=== PATIENT | female | born 1990 | race Caucasian/White ===

== ENCOUNTER 2023-05-23 18:35 | Emergency (ER) | payer SELFPAY ==
[2023-05-23 18:41] VITALS: BP 136/92; PULSE 103; RESP 16; TEMP 36.6; O2SAT 97; BMI 43.9
--- NOTE | 2023-05-23 19:18 | CTR_ITS ---
PROCEDURE INFORMATION: Exam: CT Head Without Contrast Exam date and time: 05/23/2023 7:47 PM Age: 32 years old Clinical indication: Pain; Headache; Additional info: CASSIDY TECHNIQUE: Imaging protocol: Computed tomography of the head without contrast. Radiation optimization: All CT scans at this facility use at least one of these dose optimization techniques: automated exposure control; mA and/or kV adjustment per patient size (includes targeted exams where dose is matched to clinical indication); or iterative reconstruction. REPORTING DATA: Count of CT and Cardiac NM exams in prior 12 months: This patient has received 0 known CTs and 0 known cardiac nuclear medicine studies in the 12 months prior to the current study. COMPARISON: No relevant prior studies available. RADIATION DOSE METRICS: Total DLP (mGy-cm): 1123.79 FINDINGS: Brain: Normal. No hemorrhage. Unremarkable white matter. No mass effect. Cerebral ventricles: No ventriculomegaly. Paranasal sinuses: Visualized sinuses are unremarkable. No fluid levels. Mastoid air cells: Visualized mastoid air cells are well aerated. Bones/joints: Unremarkable. No acute fracture. Soft tissues: Unremarkable. CT/CT head wo con* [id number] IMPRESSION: No acute intracranial abnormality.
--- NOTE | 2023-05-23 19:20 | ED_ITS ---
HPI - Headache General: Chief Complaint: Headache Stated Complaint: Left head pain, confusion Time Seen by Provider: 05/23/23 18:50 Source: patient Mode of arrival: ambulatory Limitations: no limitations History of Present Illness: 32-year-old female who states she had a headache since Saturday states it began gradually and is worsened on the left side states that she had a seizure she believes earlier she does have a history of seizures and not taking meds. Headaches currently an 8 out of 10 states she is felt confused at times. Denies any fevers or neck pain. Associated symptoms: Deny chest pain, fever(s), nausea, rash or vomiting Review of Systems Const: Denies: fever(s) or chills Eyes: Denies: blurry vision or eye discomfort ENMT: Denies: throat pain or dental pain Card: Denies: chest pain Resp: Denies: dyspnea GI: Denies: abdominal pain, nausea, vomiting or diarrhea Musc: Denies: neck pain or back pain Skin/Breast: Denies: rash Neuro: Reports: headache(s) Physical Exam Const: COMMON NORMALS: no acute distress, patient oriented x3 and healthy appearing HENMT: COMMON NORMALS: normocephalic and atraumatic HEAD & SCALP: normocephalic and atraumatic Eye: COMMON NORMALS: Equal, round and reactive pupils present and EOMs intact bilaterally PUPIL: Yes Equal, round and reactive pupils present Neck/C-Spine: COMMON NORMALS: full ROM and supple Chest: COMMONS NORMALS: normal inspection of the chest and normal palpation of entire chest wall Resp: COMMON NORMALS: normal respiratory effort, No retractions, No use of accessory muscles and clear to auscultation bilaterally AUSCULTATION: clear to auscultation bilaterally Cardio: COMMON NORMALS: regular rate, regular rhythm and No murmurs present (Cardio) RATE: regular rate RHYTHM: regular rhythm GI: INSPECTION: Yes normal to inspection Extremity: COMMON NORMALS: normal to inspection and full ROM Neuro: COMMON NORMALS: patient oriented x3, moves all extremities and no focal motor deficits CRANIAL NERVES: Yes CN normal except as noted SPEECH: speech normal MOTOR EXAM: 5/5 motor strength present throughout Psych: COMMON NORMALS: mental status grossly normal, Normal thought process present and cooperative THOUGHT PROCESS: Normal thought process present Skin: COMMON NORMALS: no rashes or lesions noted and no wounds GENERAL SKIN EXAM: no rashes or lesions noted Course Vital Signs: Vital signs: Vital Signs Temperature 97.9 F 05/23/23 18:41 Pulse Rate 80 05/23/23 20:02 Respiratory Rate 16 05/23/23 18:41 Blood Pressure 127/87 05/23/23 20:02 Pulse Oximetry 95 05/23/23 20:02 Oxygen Delivery Me thod Room Air 05/23/23 20:02 MDM - Headache Medical Decision Making Patient presents here with a headache is either tension or migraine headache her headaches completely resolved here after Reglan head CT is normal she has no signs of meningitis or subarachnoid hemorrhage she is stable for discharge she is to follow-up with PCP and return if worsening. Medical Records I reviewed the patient's medical records. Lab Data I reviewed the patient's lab results. 05/23/23 18:36 05/23/23 18:[address] 05/23/23 19:18 IMPRESSION: No acute intracranial abnormality. Laboratory Results WBC 10.7 10^3/uL (4.0-10.0) H 05/23/23 18:36 RBC 4.56 10^6/uL (4.1-5.3) 05/23/23 18:36 Hgb 13.6 g/dL (11.5-15.3) 05/23/23 18:36 Hct 40.4 % (37.0-47.0) 05/23/23 18:36 MCV 88.6 fl (81-99) 05/23/23 18:36 MCH 29.8 pg (28.0-34.0) 05/23/23 18:36 MCHC 33.7 g/dL (30.0-36.0) 05/23/23 18:36 RDW 13.1 % (12.1-15.1) 05/23/23 18:36 Plt Count 272 10^3/cmm (130-400) 05/23/23 18:36 MPV 10.4 fL (7.4-10.4) 05/23/23 18:36 Neut % (Auto) 62.1 % 05/23/23 18:36 Lymph % (Auto) 28.0 % 05/23/23 18:36 [place] % (Auto) 8.0 % 05/23/23 18:36 Eos % (Auto) 1.1 % 05/23/23 18:36 Baso % (Auto) 0.4 % 05/23/23 18:36 Neut # (Auto) 6.65 10^3/uL (1.8-7.7) 05/23/23 18:36 Lymph # (Auto) 3.0 10^3/uL (0.8-4.8) 05/23/23 18:36 [place] # (Auto) 0.9 10^3/uL (0.2-0.9) 05/23/23 18:36 Eos # (Auto) 0.1 10^3/uL (0.0-0.8) 05/23/23 18:36 Baso # (Auto) 0.0 10^3/uL (0.0-0.1) 05/23/23 18:36 Nucleated RBC % (auto) 0 % 05/23/23 18:36 Nucleated RBCs # 0.0 /100WBC 05/23/23 18:36 Sodium 137 mmol/L (136-145) 05/23/23 18:36 Potassium 4.2 mmol/L (3.5-5.1) 05/23/23 18:36 Chloride 102 mmol/L (98-107) 05/23/23 18:36 Carbon Dioxide 23 mmol/L (22-29) 05/23/23 18:36 Anion Gap 16.2 (5-19) 05/23/23 18:36 BUN 14 mg/dL (6-20) 05/23/23 18:36 Creatinine 0.8 mg/dL (0.5-0.9) 05/23/23 18:36 GFR Calculation 82.6 mL/min (90-130) L 05/23/23 18:36 Glucose 86 mg/dL (65-115) 05/23/23 18:36 Calculated Osmolality 284 mOsm/kg (285-295) L 05/23/23 18:36 Calcium 9.1 mg/dL (8.5-10.5) 05/23/23 18:36 Total Bilirubin 0.3 mg/dL (0.15-1.2) 05/23/23 18:36 AST 23 U/L (0-32) 05/23/23 18:36 ALT 24 U/L (0-33) 05/23/23 18:36 Alkaline Phosphatase 79 U/L (35-105) 05/23/23 18:36 Total Protein 6.8 g/dL (6.6-8.7) 05/23/23 18:36 Albumin 4.0 g/dL (3.5-5.2) 05/23/23 18:36 Globulin 2.8 g/dL (1.3-4.6) 05/23/23 18:36 HCG, Qual Negative (Negative) 05/23/23 18:46 Discharge Plan Discharge Patient Disposition: Home Clinical Impression: Headache Condition: Stable Discharge Orders: Discharge ED (Routine); Ordered 05/23/23 Ordered By: Shonda Thompson Discharge Diet: Advance as tolerated Discharge Activity: Resume usual activity Patient Instructions: General Headache (ED) Coding Level of Care Code ED Senior Executive Compensation Analyst for Ed Grullon
[2023-05-23] MEDS: metoclopramide 5 mg/mL SDV 2 mL 10 MG IVP (19:30)
[2023-05-23] MEDS: diphenhydrAMINE 50 mg/mL SDV 1mL IVP (19:30)
[2023-05-23] MEDS: sodium chloride 0.9% 1,000 ML 999 ML IV (19:30)
[2023-05-23 19:58] LABS: Basophils % 0.4 %; Eosinophils # 0.1 10^3/uL (0.0-0.8); Eosinophils % 1.1 %; Hematocrit 40.4 % (37.0-47.0); Hemoglobin 13.6 g/dL (11.5-15.3); Mean Corpuscular HGB Conc 33.7 g/dL (30.0-36.0); Mean Corpuscular Hemoglobin 29.8 pg (28.0-34.0); Mean Corpuscular Volume 88.6 fl (81-99); Mean Platelet Volume 10.4 fL (7.4-10.4); Monocytes # 0.9 10^3/uL (0.2-0.9); Neutrophils # 6.65 10^3/uL (1.8-7.7); Neutrophils % 62.1 %; Nucleated Red Blood Cells % 0 %; Platelet Count 272 10^3/cmm (130-400); Red Blood Count 4.56 10^6/uL (4.1-5.3); Red Cell Distribution Width 13.1 % (12.1-15.1); White Blood Count 10.7 10^3/uL (4.0-10.0)
[2023-05-23 20:02] VITALS: BP 127/87; PULSE 80; O2SAT 95
[2023-05-23 20:17] LABS: HCG, Serum Qual Negative (Negative)
[2023-05-23 20:19] LABS: Alanine Aminotransferase 24 U/L (0-33); Alkaline Phosphatase 79 U/L (35-105); Anion Gap 16.2 (5-19); Aspartate Amino Transferase 23 U/L (0-32); Blood Urea Nitrogen 14 mg/dL (6-20); Calcium 9.1 mg/dL (8.5-10.5); Carbon Dioxide 23 mmol/L (22-29); Chloride 102 mmol/L (98-107); Globulin 2.8 g/dL (1.3-4.6); Glomerular Filtration Rate 82.6 mL/min (90-130); Glucose 86 mg/dL (65-115); Osmolality Calculated 284 mOsm/kg (285-295); Potassium 4.2 mmol/L (3.5-5.1); Sodium 137 mmol/L (136-145); Total Bilirubin 0.3 mg/dL (0.15-1.2); Total Protein 6.8 g/dL (6.6-8.7)
[2023-05-23 20:38] VITALS: BP 120/84; PULSE 73; RESP 16; O2SAT 96
== END 2023-05-23 20:48 | disposition home or self-care (01) ==
PROVIDERS: Nurse Practitioner Family; Emergency Provider Emergency Medicine
DX: R51.9 Headache, unspecified (principal)
CPT/HCPCS: 70450; 80053; 84703; 85025; 96361; 96374; 96375; 99285; J1200; J2765; J7030

== ENCOUNTER 2025-04-18 19:55 | Emergency (ER) | payer SELFPAY ==
--- OUTSIDE RECORDS SUMMARY | 2025-04-18 20:00 | XMS_ITS | Encounter Summary ---
Author Organization [facility] Address [address] [place] [address] Care Team Providers Care Merchandising Specialist Name Role Phone Grabiel Devi MD Primary Care Provider [phone] Encounter Details Date Type Department Care Team (Late st Contact Info) Description 03/02/[address] [facility] Services[facility] [address] [place] [address] Social History Tobacco Use Types Packs/Day Years Used Date Smoking Tobacco: Never Assessed Comments Unknown Sex and Gender Information Value Date Recorded Sex Assigned at Not on file Legal Sex Female 6:12 AM ELEVATOR INSTALLER APPRENTICE Gender Identity Not on file Sexual Orientation Not on file documented as of this encounter Plan of Treatment Not on file documented as of this encounter Visit Diagnoses Not on filedocumented in this encounter Additional Health Concerns Infection Onset Date Last Indicated Resolved Time 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
--- OUTSIDE RECORDS SUMMARY | 2025-04-18 20:00 | XMS_ITS | Encounter Summary ---
Author Organization [facility] Address [address] [place] [address] Care Team Providers Care Graphic Design Specialist Name Role Phone Grabiel Devi MD Primary Care Provider [phone]- [phone] Encounter Details Date Type Department Care Team (Late st Contact Info) Description 09/17/2003 Outpatient Historical [facility] 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
--- OUTSIDE RECORDS SUMMARY | 2025-04-18 20:00 | XMS_ITS | Encounter Summary ---
Author Organization [facility] Address [address] [place] [address] Care Team Providers Care Feed Mill Lab Technician Name Role Phone Grabiel Devi MD Primary Care Provider [phone]- [phone] Encounter Details Date Type Department Care Team (Latest Contact Info) Description 09/10/2003 Outpatient [facility] [address] Layla Gauthier, PhD NO ADDRESS ON FILE CONVERSION DISORDER (Primary Dx) Social History Tobacco Use Types Packs/Day Years Used Date Smoking Tobacco: Never Assessed Comments Unknown Sex and Gender Information Value Date Recorded Sex Assigned at Not on file Legal Sex Female 6:12 AM BIOMEDICAL EQUIPMENT TECH Gender Identity Not on file Sexual Orientation Not on file documented as of this encounter Plan of Treatment Not on file documented as of this encounter Visit Diagnoses Diagnosis Conversion disorder- Primary documented in this encounter Additional Health Concerns Infection Onset Date Last Indicated Resolved Time 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
--- OUTSIDE RECORDS SUMMARY | 2025-04-18 20:00 | XMS_ITS | Encounter Summary ---
Author Organization [facility] Address [address] [place] [address] Care Team Providers Care Fire Tender Name Role Phone Grabiel Devi MD Primary Care Provider [phone]- [phone] Encounter Details Date Type Department Care Team (Latest Contact Info) Description 12/21/2003 Outpatient [facility] [address] Layla Gauthier, PhD NO ADDRESS ON FILE CONVERSION DISORDER (Primary Dx) Social History Tobacco Use Types Packs/Day Years Used Date Smoking Tobacco: Never Assessed Comments Unknown Sex and Gender Information Value Date Recorded Sex Assigned at Not on file Legal Sex Female 6:12 AM MARKETING CONTENT SPECIALIST Gender Identity Not on file Sexual Orientation Not on file documented as of this encounter Plan of Treatment Not on file documented as of this encounter Visit Diagnoses Diagnosis Conversion disorder- Primary documented in this encounter Additional Health Concerns Infection Onset Date Last Indicated Resolved Time 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
--- OUTSIDE RECORDS SUMMARY | 2025-04-18 20:00 | XMS_ITS | Encounter Summary ---
Author Organization [facility] Address [address] [place] [address] Care Team Providers Care Seafood Manager Name Role Phone Grabiel Devi MD Primary Care Provider [phone] Reason for Referral * Radiology Services (Routine) - Closed Specialty Diagnoses / Procedures Referred By Contac t Referred To Contact Diagnoses Lumbar disc herniation Procedures XR FLUORO LESS THAN 1 HOUR bA Wilcox MD Phone: tel: fax: Referral ID Status Reason Start Date Expiration Date Visits Re quested Visits Authorized [id number] Closed 12/23/2019 01/22/2021 1 1 CTOR CORPORATE COMPLIANCE Encounter Details Date Type Department Care Team (Latest Contact Info) Description 12/23/2019 Ancillary Orders [facility] Radiology OR [address] [place] [address] Ab Wilcox MD [address] [address] Lumbar disc herniation Social History Tobacco Use Types Packs/Day Years Used Date Smoking Tobacco: Every Day Cigarettes 0.5 15 Smokeless Tobacco: Never Alcohol Use Standard Drinks/Week Comments Yes 0 (1 standard drink = 0.6 oz pur e alcohol) Comments No Sex and Gender Information Value Date Recorded Sex Assigned at Not on file Legal Sex Female 6:12 AM DIRECTOR CORPORATE COMPLIANCE Gender Identity Not on file Sexual Orientation Not on file Occupation Industry Job Start Date Job End Date Not on file Not on file Not on file Not on file documented as of this encounter Plan of Treatment Not on file documented as of this encounter Results * XR FLUORO LESS THAN 1 HOUR (12/23/2019 11:30 AM DIRECTOR CORPORATE COMPLIANCE) Narrative 12/23/2019 11:31 AM DIRECTOR CORPORATE COMPLIANCE Order information only. Exam was auto-finalized. us Ab Wilcox MD DIAGNOSTIC IMAGING ORDERA BLES Final Result * XR LUMBAR SPINE 1 VW (12/23/2019 11:30 AM DIRECTOR CORPORATE COMPLIANCE) Anatomical Region Laterality Modality Spine Computed Radiogr aphy 12/23/2019 11:3 0 AM DIRECTOR CORPORATE COMPLIANCE Impressions 12/23/2019 12:03 PM DIRECTOR CORPORATE COMPLIANCE IMPRESSION: Please see below. Exam: XR LUMBAR SPINE 1 VW Date/Time of Exam: 12/23/2019 11:30 AM Reason For Exam: See Diagnosis. Diagnosis: Lumbar disc herniation. Findings: Surgical enhancement projected at the posterior elements of the lumbosacral disc space. Clinical correlation recommended. [id number] Narrative Procedure Note Tim Karimi MD - 12/23/2019 IMPRESSION: Please see below. Exam: XR LUMBAR SPINE 1 VW Date/Time of Exam: 12/23/2019 11:30 AM Reason For Exam: See Diagnosis. Diagnosis: Lumbar disc herniation. Findings: Surgical enhancement projected at the posterior elements of the lumbosacral disc space. Clinical correlation recommended. [id number] us Ab Wilcox MD DIAGNOSTIC IMAGING ORDERA BLES Final Result documented in this encounter Visit Diagnoses Diagnosis Lumbar disc herniation Displacement of lumbar intervertebral disc without myelopathy documented in this encounter Care Teams Seafood Manager Relationship Specialty Start Date End Date Grabiel Devi MD PCP - General Family Practice 11/07/17 documented as of this encounter
--- OUTSIDE RECORDS SUMMARY | 2025-04-18 20:00 | XMS_ITS | Encounter Summary ---
Author Organization [facility] Address [address] [place] [address] Care Team Providers Care Dry Talc Racker Name Role Phone Grabiel Devi MD Primary Care Provider [phone] Encounter Details Date Type Department Care Team (Latest Contact Info) Description 12/05/2003 Outpatient Historical [facility] [address] [place] [address] Doris Henao MD NO ADDRESS ON FILE ACUTE SINUSITIS NOS (Primary Dx); COUGH Social History Tobacco Use Types Packs/Day Years Used Date Smoking Tobacco: Never Assessed Comments Unknown Sex and Gender Information Value Date Recorded Sex Assigned at Not on file Legal Sex Female 6:12 AM FIELD ASSESSOR Gender Identity Not on file Sexual Orientation Not on file documented as of this encounter Plan of Treatment Not on file documented as of this encounter Visit Diagnoses Diagnosis Acute sinusitis, unspecified- Primary Cough documented in this encounter Additional Health Concerns Infection Onset Date Last Indicated Resolved Time 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
--- OUTSIDE RECORDS SUMMARY | 2025-04-18 20:00 | XMS_ITS | Encounter Summary ---
Author Organization [facility] Address [address] [place] [address] Care Team Providers Care Restaurant Inspector Name Role Phone Grabiel Devi MD Primary Care Provider Encounter Details Date Type Department Care Team (Latest Contact Info) Description 11/19/2003 Outpatient Historical [facility] [address] [place] [address] Magen Diaz MD NO ADDRESS ON FILE ACUTE PHARYNGITIS (Primary Dx); ACUTE URI NOS Social History Tobacco Use Types Packs/Day Years Used Date Smoking Tobacco: Never Assessed Comments Unknown Sex and Gender Information Value Date Recorded Sex Assigned at Not on file Legal Sex Female 6:12 AM CLIENT SUPPORT ANALYST Gender Identity Not on file Sexual Orientation Not on file documented as of this encounter Plan of Treatment Not on file documented as of this encounter Visit Diagnoses Diagnosis Acute pharyngitis- Primary Acute upper respiratory infections of unspecified site documented in this encounter Additional Health Concerns Infection Onset Date Last Indicated Resolved Time 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
--- OUTSIDE RECORDS SUMMARY | 2025-04-18 20:00 | XMS_ITS | Encounter Summary ---
Author Organization [facility] Address [address] [place] [address] Care Team Providers Care Hospitalist Nocturnist Physician Name Role Phone Grabiel Devi MD Primary Care Provider [phone] Encounter Details Date Type Department Care Team (Latest Contact Info) Description 08/23/2003 Outpatient [facility] [address] Layla Gauthier, PhD NO ADDRESS ON FILE CONVERSION DISORDER (Primary Dx) Social History Tobacco Use Types Packs/Day Years Used Date Smoking Tobacco: Never Assessed Comments Unknown Sex and Gender Information Value Date Recorded Sex Assigned at Not on file Legal Sex Female 6:12 AM PLANT CYTOLOGIST Gender Identity Not on file Sexual Orientation Not on file documented as of this encounter Plan of Treatment Not on file documented as of this encounter Visit Diagnoses Diagnosis Conversion disorder- Primary documented in this encounter Additional Health Concerns Infection Onset Date Last Indicated Resolved Time 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
--- OUTSIDE RECORDS SUMMARY | 2025-04-18 20:00 | XMS_ITS | Clinical Summary ---
Author Organization [facility] Address [address] [place] [address] Care Team Providers Care Customer Success Specialist Name Role Phone Grabiel Devi MD Primary Care Provider Allergies No known active allergies Medications gabapentin (NEURONTIN) 100 mg capsule Take 1 Capsule (100 mg) by mouth 3 times daily. 90 Capsule 0 12/15/2019 Active Active Problems Problem Noted Date Diagnosed Date Preoperative general physical examination 2019 History of pseudoseizure 12/16/2019 Overview (02/17/2021): Last episode 2018 Lumbar disc herniation 12/16/2019 Severe obesity (BMI 35.0-39.9) with comorbidity 12/16/2019 Leukocytosis 12/16/2019 Tobacco abuse 04/10/2018 GERD (gastroesophageal reflux disease) 1 Anxiety Resolved Problems Problem Noted Date Diagnosed Date Resolved Date Supervision of normal subsequent 08/22/2010 12/16/2019 Nausea and vomiting in 08/22/2010 12/16/2019 Immunizations Immunization Administration Dates Next Due (M-M-R II/PRIORIX)(12 MO UP) MEASLES, MUMPS AND RUBELLA VIRUS VACCINE, 0.5 ML IM/SUBCUT 06/14/1994,08/06/1991 (TDVAX)(7 YRS UP) TETANUS AN D DIPHTHERIA TOXOIDS, ADSORBED (2 LF OF TETANUS TOXOID AND 2 LF OF DIPHTHERIA TOXOID), 0.5ML (PF), IM 08/24/2004 Dt Dtp Dtap Vaccine 06/14/1994, 3,02/04/1990,1989 HIB, Unspecified Formulation 08/06/1991 Hepatitis B Vaccine 01/21/2002,08/27/2001,2000 IPV/OPV 06/14/1994,03/22/1993,1989 Family History Medical History Relation Name Comments Cancer Brother ALL Other Daughter Stomach Issues - Bentyl Healthy Father No Known Problems Half-Sister Diabetes Maternal Grandfather Heart Disease Maternal Grandfather Hypertension Maternal Grandfather Stroke Maternal Grandfather Diabetes Maternal Grandmother Hypertension Maternal Grandmother Healthy Mother Hypertension Mother Diabetes Paternal Grandfather Hypertension Paternal Grandfather Other Paternal Grandfather giantis m Diabetes Paternal Grandmother Hypertension Paternal Grandmother Other Sister TBI - MVA ADHD Son Combined Type Migraines Son Seizures Son Epilepsy Relation Name Status Comments Brother Alive Daughter Alive Father Alive Half-Sister Alive Maternal Grandfather Maternal Grandmother Alive Mother Alive Paternal Grandfather Alive Paternal Grandmother Alive Sister Alive Son Alive Social History Tobacco Use Types Packs/Day Years Used Date Smoking Tobacco: Every Day Cigarettes Smokeless Tobacco: Never Alcohol Use Standard Drinks/Week Comments Yes 0 (1 standard drink = 0.6 oz pur e alcohol) Comments Unknown Sex and Gender Information Value Date Recorded Sex Assigned at Not on file Legal Sex Female 12:23 PM SHOT LIGHTER Gender Identity Not on file Sexual Orientation Not on file Last Filed Vital Signs Vital Sign Reading Time Taken Comments Blood Pressure 112/78 01/11/2020 9:50 AM CDT Pulse 97 12/23/2019 1:40 PM SHOT LIGHTER Temperature 36.6 C (97.8 F) 12/23/2019 2:00 PM SHOT LIGHTER Respiratory Rate 20 12/23/2019 1:40 PM SHOT LIGHTER Oxygen Saturation - - Inhaled Oxygen Concentration - - Weight 92.1 kg (203 lb) 01/11/2020 9:50 AM CDT Height 157.5 cm (5' 2 ) 01/11/2020 9:50 AM CDT Body Mass Index 37.13 01/11/2020 9:50 AM CDT Plan of Treatment Health Maintenance Due Date Last Done Comments Pre-Diabetes and Diabetes Screening 1989 DTAP/TDAP/TD VACCINES (5 - Tdap) 08/25/2004 08/24/2004, 06/14/1994, 03/22/1993, Additional history exists HPV/Cotest (21-29) 2010 CERVICAL CANCER SCREENING 2019 HPV/Cotest (30-65) 2019 PAP SMEAR 2019 INFLUENZA VACCINE (#1) 2024 Preventative Visit- Commercial 10/21/2024 HEPATITIS B VACCINES Completed 01/21/2002, 08/27/2001, 07/23/2001 HPV VACCINES Aged Out No longer eligi ble based on patient's age to complete this topic Medical Devices Implanted Type Area Facility Maintenance Helper Device Identifier Shelf Expiration Date Model / Serial / Lot Hemostatic Surgiflo 8ml W/Thrombin 2994 - [id number] Implanted:01/2020 by Ab Wilcox MD (Quantity not on file) Hemostatic N/A: Spine Lumbar [employer] [id number] 09/19/2020 2994 / / [id number] Insurance * Guarantor: MARYLIN JIANG Account Type Relation to Patient Date of Phone Billing Address Personal/Family [address] [facility] [address] [place] [address] [facility] Care Teams Customer Success Specialist Relationship Specialty Start Date End Date Grabiel Devi MD PCP - General Family Practice 11/07/17
--- OUTSIDE RECORDS SUMMARY | 2025-04-18 20:00 | XMS_ITS | Encounter Summary ---
Author Organization [facility] Address [address] [place] [address] Care Team Providers Care Dehydrogenation Supervisor Name Role Phone Grabiel Devi MD Primary Care Provider +1- [phone] Encounter Details Date Type Department Care Team (Latest Contact Info) Description 10/28/2003 Outpatient [facility]- [address] [address] Layla Gauthier, PhD NO ADDRESS ON FILE CONVERSION DISORDER (Primary Dx) Social History Tobacco Use Types Packs/Day Years Used Date Smoking Tobacco: Never Assessed Comments Unknown Sex and Gender Information Value Date Recorded Sex Assigned at Not on file Legal Sex Female 6:12 AM CHARGE LPN Gender Identity Not on file Sexual Orientation Not on file documented as of this encounter Plan of Treatment Not on file documented as of this encounter Visit Diagnoses Diagnosis Conversion disorder- Primary documented in this encounter Additional Health Concerns Infection Onset Date Last Indicated Resolved Time 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
--- OUTSIDE RECORDS SUMMARY | 2025-04-18 20:00 | XMS_ITS | Encounter Summary ---
Author Organization [facility] Address [address] [place] [address] Care Team Providers Care Radio Communications Superintendent Name Role Phone Grabiel Devi MD Primary Care Provider +1- [phone] Encounter Details Date Type Department Care Team (Latest Contact Info) Description 02/29/2004 Outpatient Historical [facility] [place] [address] [place] [address] Magen Diaz MD NO ADDRESS ON FILE JOINT DERANGEMENT NEC-L/LEG (Primary Dx) Social History Tobacco Use Types Packs/Day Years Used Date Smoking Tobacco: Never Assessed Comments Unknown Sex and Gender Information Value Date Recorded Sex Assigned at Not on file Legal Sex Female 6:12 AM CARBON BRUSHES ASSEMBLER Gender Identity Not on file Sexual Orientation Not on file documented as of this encounter Plan of Treatment Not on file documented as of this encounter Visit Diagnoses Diagnosis Other joint derangement, not elsewhere classified, lower leg- Primary documented in this encounter Additional Health Concerns Infection Onset Date Last Indicated Resolved Time 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
--- OUTSIDE RECORDS SUMMARY | 2025-04-18 20:00 | XMS_ITS | Encounter Summary ---
Author Organization [facility] Address [address] [place] [address] Care Team Providers Care Computer Systems Security Analyst Name Role Phone Grabiel Devi MD Primary Care Provider +1- [phone] Encounter Details Date Type Department Care Team (Latest Contact Info) Description 01/04/2004 Outpatient Historical [facility] [place] [address] [place] [address] Magen Diaz MD NO ADDRESS ON FILE INJURY-SITE NOS (Primary Dx) Social History Tobacco Use Types Packs/Day Years Used Date Smoking Tobacco: Never Assessed Comments Unknown Sex and Gender Information Value Date Recorded Sex Assigned at Not on file Legal Sex Female 6:12 AM BI ARCHITECT Gender Identity Not on file Sexual Orientation Not on file documented as of this encounter Plan of Treatment Not on file documented as of this encounter Visit Diagnoses Diagnosis Injury, other and unspecified, unspecified site- Primary documented in this encounter Additional Health Concerns Infection Onset Date Last Indicated Resolved Time 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
--- OUTSIDE RECORDS SUMMARY | 2025-04-18 20:00 | XMS_ITS | Encounter Summary ---
Author Organization [facility] Address [address] [place] [address] Care Team Providers Care Color Finisher Name Role Phone Grabiel Devi MD Primary Care Provider +1- [phone] Encounter Details Date Type Department Care Team (Latest Contact Info) Description 09/22/2003 Outpatient [facility] [address] Layla Gauthier, PhD NO ADDRESS ON FILE CONVERSION DISORDER (Primary Dx) Social History Tobacco Use Types Packs/Day Years Used Date Smoking Tobacco: Never Assessed Comments Unknown Sex and Gender Information Value Date Recorded Sex Assigned at Not on file Legal Sex Female 6:12 AM WOOD FLOOR REFINISHER Gender Identity Not on file Sexual Orientation Not on file documented as of this encounter Plan of Treatment Not on file documented as of this encounter Visit Diagnoses Diagnosis Conversion disorder- Primary documented in this encounter Additional Health Concerns Infection Onset Date Last Indicated Resolved Time 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
--- OUTSIDE RECORDS SUMMARY | 2025-04-18 20:00 | XMS_ITS | Encounter Summary ---
Author Organization [facility] Address [address] [place] [address] Care Team Providers Care Butadiene Converter Utility Operator Name Role Phone Grabiel Devi MD Primary Care Provider +1- [phone] Encounter Details Date Type Department Care Team (Latest Contact Info) Description 01/04/2004 Outpatient Historical [facility] [place] [address] [place] [address] Magen Diaz MD NO ADDRESS ON FILE Contusion shoulder reg (Primary Dx) Social History Tobacco Use Types Packs/Day Years Used Date Smoking Tobacco: Never Assessed Comments Unknown Sex and Gender Information Value Date Recorded Sex Assigned at Not on file Legal Sex Female 6:12 AM BOOM BOSS Gender Identity Not on file Sexual Orientation Not on file documented as of this encounter Plan of Treatment Not on file documented as of this encounter Visit Diagnoses Diagnosis Contusion shoulder reg- Primary Contusion of shoulder region documented in this encounter Additional Health Concerns Infection Onset Date Last Indicated Resolved Time 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
--- OUTSIDE RECORDS SUMMARY | 2025-04-18 20:00 | XMS_ITS | Encounter Summary ---
Author Organization [facility] Address [address] [place] [address] Care Team Providers Care Senior Software Qa Engineer Name Role Phone Grabiel Devi MD Primary Care Provider +1- [phone] Encounter Details Date Type Department Care Team (Latest Contact Info) Description 11/08/2003 Outpatient [facility]- [address] [address] Layla Gauthier, PhD NO ADDRESS ON FILE CONVERSION DISORDER (Primary Dx) Social History Tobacco Use Types Packs/Day Years Used Date Smoking Tobacco: Never Assessed Comments Unknown Sex and Gender Information Value Date Recorded Sex Assigned at Not on file Legal Sex Female 6:12 AM BUSINESS ANALYSIS CONSULTANT Gender Identity Not on file Sexual Orientation Not on file documented as of this encounter Plan of Treatment Not on file documented as of this encounter Visit Diagnoses Diagnosis Conversion disorder- Primary documented in this encounter Additional Health Concerns Infection Onset Date Last Indicated Resolved Time 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
--- OUTSIDE RECORDS SUMMARY | 2025-04-18 20:00 | XMS_ITS | Encounter Summary ---
Author Organization [facility] Address [address] [place] [address] Care Team Providers Care Integration Project Manager Name Role Phone Grabiel Devi MD Primary Care Provider Encounter Details Date Type Department Care Team (Latest Contact Info) Description 09/08/2003 Outpatient Historical [facility] [place] [address] [place] [address] Magen Diaz MD NO ADDRESS ON FILE HEADACHE (Primary Dx) Social History Tobacco Use Types Packs/Day Years Used Date Smoking Tobacco: Never Assessed Comments Unknown Sex and Gender Information Value Date Recorded Sex Assigned at Not on file Legal Sex Female 6:12 AM DRUG WORKER Gender Identity Not on file Sexual Orientation Not on file documented as of this encounter Plan of Treatment Not on file documented as of this encounter Visit Diagnoses Diagnosis Headache(784.0)- Primary Headache documented in this encounter Additional Health Concerns Infection Onset Date Last Indicated Resolved Time 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
--- OUTSIDE RECORDS SUMMARY | 2025-04-18 20:00 | XMS_ITS | Encounter Summary ---
Author Organization [facility] Address [address] [place] [address] Care Team Providers Care Clinic Licensed Practical Nurse Name Role Phone Grabiel Devi MD Primary Care Provider +1- [phone] Encounter Details Date Type Department Care Team (Latest Contact Info) Description 11/19/2003 Outpatient [facility]- [address] [address] Layla Gauthier, PhD NO ADDRESS ON FILE CONVERSION DISORDER (Primary Dx) Social History Tobacco Use Types Packs/Day Years Used Date Smoking Tobacco: Never Assessed Comments Unknown Sex and Gender Information Value Date Recorded Sex Assigned at Not on file Legal Sex Female 6:12 AM NEUROLOGY SPECIALIST Gender Identity Not on file Sexual Orientation Not on file documented as of this encounter Plan of Treatment Not on file documented as of this encounter Visit Diagnoses Diagnosis Conversion disorder- Primary documented in this encounter Additional Health Concerns Infection Onset Date Last Indicated Resolved Time 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
--- OUTSIDE RECORDS SUMMARY | 2025-04-18 20:00 | XMS_ITS | Encounter Summary ---
Author Organization [facility] Address [address] [place] [address] Care Team Providers Care Acoustic Sensor Operator Name Role Phone Grabiel Devi MD Primary Care Provider +1- [phone] Encounter Details Date Type Department Care Team (Latest Contact Info) Description 01/17/2004 Outpatient [facility]iat[facility] [address] Layla Gauthier, PhD NO ADDRESS ON FILE CONVERSION DISORDER (Primary Dx) Social History Tobacco Use Types Packs/Day Years Used Date Smoking Tobacco: Never Assessed Comments Unknown Sex and Gender Information Value Date Recorded Sex Assigned at Not on file Legal Sex Female 6:12 AM SIDE PULLER Gender Identity Not on file Sexual Orientation Not on file documented as of this encounter Plan of Treatment Not on file documented as of this encounter Visit Diagnoses Diagnosis Conversion disorder- Primary documented in this encounter Additional Health Concerns Infection Onset Date Last Indicated Resolved Time 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
--- OUTSIDE RECORDS SUMMARY | 2025-04-18 20:00 | XMS_ITS | Encounter Summary ---
Author Organization [facility] Address [address] [place] [address] Care Team Providers Care Mattress Spring Encaser Name Role Phone Grabiel Devi MD Primary Care Provider +1- [phone] Encounter Details Date Type Department Care Team (Latest Contact Info) Description 09/03/2003 Outpatient [facility] [address] Layla Gauthier, PhD NO ADDRESS ON FILE CONVERSION DISORDER (Primary Dx) Social History Tobacco Use Types Packs/Day Years Used Date Smoking Tobacco: Never Assessed Comments Unknown Sex and Gender Information Value Date Recorded Sex Assigned at Not on file Legal Sex Female 6:12 AM FIRER GLOST KILN Gender Identity Not on file Sexual Orientation Not on file documented as of this encounter Plan of Treatment Not on file documented as of this encounter Visit Diagnoses Diagnosis Conversion disorder- Primary documented in this encounter Additional Health Concerns Infection Onset Date Last Indicated Resolved Time 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
--- OUTSIDE RECORDS SUMMARY | 2025-04-18 20:00 | XMS_ITS | Encounter Summary ---
Author Organization [facility] Address [address] [place] [address] Care Team Providers Care Endband Cutter Hand Name Role Phone Grabiel Devi MD Primary Care Provider Encounter Details Date Type Department Care Team (Latest Contact Info) Description 10/01/1998 Outpatient Historical [facility]s-[facility] [place] [address] [place] [address] Magen Diaz MD NO ADDRESS ON FILE Streptococcal sore throat (Primary Dx) Social History Tobacco Use Types Packs/Day Years Used Date Smoking Tobacco: Never Assessed Comments Unknown Sex and Gender Information Value Date Recorded Sex Assigned at Not on file Legal Sex Female 6:12 AM HOSPITAL CLINIC ASSISTANT Gender Identity Not on file Sexual Orientation Not on file documented as of this encounter Plan of Treatment Not on file documented as of this encounter Visit Diagnoses Diagnosis Streptococcal sore throat- Primary documented in this encounter Additional Health Concerns Infection Onset Date Last Indicated Resolved Time 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
--- OUTSIDE RECORDS SUMMARY | 2025-04-18 20:00 | XMS_ITS | Encounter Summary ---
Author Organization [facility] Address [address] [place] [address] Care Team Providers Care Power Engineer Name Role Phone Grabiel Devi MD Primary Care Provider +1- [phone] Encounter Details Date Type Department Care Team (Latest Contact Info) Description 09/30/2003 Outpatient [facility] [address] Layla Gauthier, PhD NO ADDRESS ON FILE CONVERSION DISORDER (Primary Dx) Social History Tobacco Use Types Packs/Day Years Used Date Smoking Tobacco: Never Assessed Comments Unknown Sex and Gender Information Value Date Recorded Sex Assigned at Not on file Legal Sex Female 6:12 AM DELIVERY MAN Gender Identity Not on file Sexual Orientation Not on file documented as of this encounter Plan of Treatment Not on file documented as of this encounter Visit Diagnoses Diagnosis Conversion disorder- Primary documented in this encounter Additional Health Concerns Infection Onset Date Last Indicated Resolved Time 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
--- OUTSIDE RECORDS SUMMARY | 2025-04-18 20:00 | XMS_ITS | Encounter Summary ---
Author Organization [facility] Address [address] [place] [address] Care Team Providers Care Steam Pressure Chamber Operator Name Role Phone Grabiel Devi MD Primary Care Provider Encounter Details Date Type Department Care Team (Latest Contact Info) Description 07/11/1999 Outpatient Historical 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
--- OUTSIDE RECORDS SUMMARY | 2025-04-18 20:00 | XMS_ITS | Encounter Summary ---
Author Organization [facility] Address [address] [place] [address] Care Team Providers Care Skin Specialist Name Role Phone Grabiel Devi MD Primary Care Provider +1- [phone] Encounter Details Date Type Department Care Team (Latest Contact Info) Description 03/02/2004 Outpatient Historical [facility] Imaging Services-[place] Alfie Kennedy [address] [place] [address] Magen Diaz MD NO ADDRESS ON FILE JOINT PAIN-L/LEG (Primary Dx) Social History Tobacco Use Types Packs/Day Years Used Date Smoking Tobacco: Never Assessed Comments Unknown Sex and Gender Information Value Date Recorded Sex Assigned at Not on file Legal Sex Female 6:12 AM BUCKLE STRAP PUNCHER Gender Identity Not on file Sexual Orientation Not on file documented as of this encounter Plan of Treatment Not on file documented as of this encounter Visit Diagnoses Diagnosis Pain in joint, lower leg- Primary documented in this encounter Additional Health Concerns Infection Onset Date Last Indicated Resolved Time 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
--- OUTSIDE RECORDS SUMMARY | 2025-04-18 20:01 | XMS_ITS | Encounter Summary ---
Author Organization [facility] Address [address] [place] [address] Care Team Providers Care Blocker Heated Metal Forms Name Role Phone Grabiel Devi MD Primary Care Provider +1- [phone] Encounter Details Date Type Department Care Team (Latest Contact Info) Description 07/20/2003 Outpatient [facility] [address] Layla Gauthier, PhD NO ADDRESS ON FILE CONVERSION DISORDER (Primary Dx) Social History Tobacco Use Types Packs/Day Years Used Date Smoking Tobacco: Never Assessed Comments Unknown Sex and Gender Information Value Date Recorded Sex Assigned at Not on file Legal Sex Female 6:12 AM STATEMENT CLERK Gender Identity Not on file Sexual Orientation Not on file documented as of this encounter Plan of Treatment Not on file documented as of this encounter Visit Diagnoses Diagnosis Conversion disorder- Primary documented in this encounter Additional Health Concerns Infection Onset Date Last Indicated Resolved Time 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
--- OUTSIDE RECORDS SUMMARY | 2025-04-18 20:01 | XMS_ITS | Encounter Summary ---
Author Organization [facility] Address [address] [place] [address] Care Team Providers Care Incident Analyst Name Role Phone Grabiel Devi MD Primary Care Provider [phone] Encounter Details Date Type Department Care Team (Latest Contact Info) Description 07/11/1999 Outpatient Historical [facility] Imaging Services[facility] Alfie Mcdaniels [address] [place] [address] Magen Diaz MD NO ADDRESS ON FILE Juv osteochondrosis leg (Primary Dx) Social History Tobacco Use Types Packs/Day Years Used Date Smoking Tobacco: Never Assessed Comments Unknown Sex and Gender Information Value Date Recorded Sex Assigned at Not on file Legal Sex Female 6:12 AM MODULAR HOME CREW MEMBER Gender Identity Not on file Sexual Orientation [...] (MDRO) Comment:RESOLVED 01/23/2015 01/26/2015 12/22/2019 11:53 AM MODULAR HOME CREW MEMBER documented as of this encounter Care Teams Incident Analyst Relationship Specialty Start Date End Date Grabiel Devi MD PCP - General Family Practice 11/07/17 documented as of this encounter
--- OUTSIDE RECORDS SUMMARY | 2025-04-18 20:01 | XMS_ITS | Encounter Summary ---
Author Organization [facility] Address [address] [place] [address] Care Team Providers Care Clam Dredger Name Role Phone Grabiel Devi MD Primary Care Provider +1- [phone] Encounter Details Date Type Department Care Team (Latest Contact Info) Description 12/01/1999 Outpatient Historical [facility] [place] [address] [place] [address] Magen Diaz MD NO ADDRESS ON FILE Streptococcal sore throat (Primary Dx) Social History Tobacco Use Types Packs/Day Years Used Date Smoking Tobacco: Never Assessed Comments Unknown Sex and Gender Information Value Date Recorded Sex Assigned at Not on file Legal Sex Female 6:12 AM COMMUNITY ORGANIZER Gender Identity Not on file Sexual Orientation Not on file documented as of this encounter Plan of Treatment Not on file documented as of this encounter Visit Diagnoses Diagnosis Streptococcal sore throat- Primary documented in this encounter Additional Health Concerns Infection Onset Date Last Indicated Resolved Time 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
--- OUTSIDE RECORDS SUMMARY | 2025-04-18 20:01 | XMS_ITS | Encounter Summary ---
Author Organization [facility] Address [address] [place] [address] Care Team Providers Care Environmental Web Crawler Name Role Phone Grabiel Devi MD Primary Care Provider +1- [phone] Encounter Details Date Type Department Care Team (Latest Contact Info) Description 08/18/2003 Outpatient [facility]- [address] [address] Layla Gauthier, PhD NO ADDRESS ON FILE CONVERSION DISORDER (Primary Dx) Social History Tobacco Use Types Packs/Day Years Used Date Smoking Tobacco: Never Assessed Comments Unknown Sex and Gender Information Value Date Recorded Sex Assigned at Not on file Legal Sex Female 6:12 AM CORRECTION WARDEN Gender Identity Not on file Sexual Orientation Not on file documented as of this encounter Plan of Treatment Not on file documented as of this encounter Visit Diagnoses Diagnosis Conversion disorder- Primary documented in this encounter Additional Health Concerns Infection Onset Date Last Indicated Resolved Time 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
--- OUTSIDE RECORDS SUMMARY | 2025-04-18 20:01 | XMS_ITS | Encounter Summary ---
Author Organization [facility] Address [address] [place] [address] Care Team Providers Care Buttonhole Maker Name Role Phone Grabiel Devi MD Primary Care Provider Encounter Details Date Type Department Care Team (Latest Contact Info) Description 11/23/1999 Outpatient Historical [facility] [address] [place] [address] Magen Diaz MD NO ADDRESS ON FILE Vaccine for viral hepatitis (Primary Dx) Social History Tobacco Use Types Packs/Day Years Used Date Smoking Tobacco: Never Assessed Comments Unknown Sex and Gender Information Value Date Recorded Sex Assigned at Not on file Legal Sex Female 6:12 AM PLATE STACKER Gender Identity Not on file Sexual Orientation Not on file documented as of this encounter Plan of Treatment Not on file documented as of this encounter Visit Diagnoses Diagnosis Vaccine for viral hepatitis- Primary Need for prophylactic vaccination and inoculation against viral hepatitis documented in this encounter Additional Health Concerns Infection Onset Date Last Indicated Resolved Time 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
--- OUTSIDE RECORDS SUMMARY | 2025-04-18 20:01 | XMS_ITS | Encounter Summary ---
Author Organization [facility] Address [address] [place] [address] Care Team Providers Care Scientologist Name Role Phone Grabiel Devi MD Primary Care Provider +1- [phone] Encounter Details Date Type Department Care Team (Latest Contact Info) Description 07/09/2003 Outpatient Historical [facility] Pediatrics-[place] [address] [place] [address] Magen Diaz MD NO ADDRESS ON FILE CONVERSION DISORDER (Primary Dx) Social History Tobacco Use Types Packs/Day Years Used Date Smoking Tobacco: Never Assessed Comments Unknown Sex and Gender Information Value Date Recorded Sex Assigned at Not on file Legal Sex Female 6:12 AM CARTRIDGE FEEDER Gender Identity Not on file Sexual Orientation Not on file documented as of this encounter Plan of Treatment Not on file documented as of this encounter Visit Diagnoses Diagnosis Conversion disorder- Primary documented in this encounter Additional Health Concerns Infection Onset Date Last Indicated Resolved Time 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
--- OUTSIDE RECORDS SUMMARY | 2025-04-18 20:01 | XMS_ITS | Encounter Summary ---
Author Organization [facility] Address [address] [place] [address] Care Team Providers Care Chinese Medicine Practitioner Name Role Phone Grabiel Devi MD Primary Care Provider +1- [phone] Encounter Details Date Type Department Care Team (Latest Contact Info) Description 08/18/2003 Outpatient Historical [facility] Pediatrics[facility] [address] [place] [address] Magen Diaz MD NO ADDRESS ON FILE ACUTE PHARYNGITIS (Primary Dx); ACUTE SINUSITIS NOS Social History Tobacco Use Types Packs/Day Years Used Date Smoking Tobacco: Never Assessed Comments Unknown Sex and Gender Information Value Date Recorded Sex Assigned at Not on file Legal Sex Female 6:12 AM ICING MACHINE OPERATOR Gender Identity Not on file Sexual Orientation Not on file documented as of this encounter Plan of Treatment Not on file documented as of this encounter Visit Diagnoses Diagnosis Acute pharyngitis- Primary Acute sinusitis, unspecified documented in this encounter Additional Health Concerns Infection Onset Date Last Indicated Resolved Time 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
--- OUTSIDE RECORDS SUMMARY | 2025-04-18 20:01 | XMS_ITS | Encounter Summary ---
Author Organization [facility] Address [address] [place] [address] Care Team Providers Care Surface Plate Inspector Name Role Phone Grabiel Devi MD Primary Care Provider +1- [phone] Encounter Details Date Type Department Care Team (Latest Contact Info) Description 07/15/2002 Outpatient Historical [facility] Imaging Services-[place] Alfie [place] [address] [place] [address] Magen Diaz MD NO ADDRESS ON FILE FEMALE GENITAL SYMPTOMS NOS (Primary Dx) Social History Tobacco Use Types Packs/Day Years Used Date Smoking Tobacco: Never Assessed Comments Unknown Sex and Gender Information Value Date Recorded Sex Assigned at Not on file Legal Sex Female 6:12 AM TEXTBOOK ASSOCIATE Gender Identity Not on file Sexual Orientation Not on file documented as of this encounter Plan of Treatment Not on file documented as of this encounter Visit Diagnoses Diagnosis Unspecified symptom associated with female genital organs- Primary documented in this encounter Additional Health Concerns Infection Onset Date Last Indicated Resolved Time 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
--- OUTSIDE RECORDS SUMMARY | 2025-04-18 20:01 | XMS_ITS | Encounter Summary ---
Author Organization [facility] Address [address] [place] [address] Care Team Providers Care Clarifying Plant Operator Name Role Phone Grabiel Devi MD Primary Care Provider +1- [phone] Encounter Details Date Type Department Care Team (Late st Contact Info) Description 07/09/2003 Outpatient Historical [facility] Imaging Services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
--- OUTSIDE RECORDS SUMMARY | 2025-04-18 20:01 | XMS_ITS | Encounter Summary ---
Author Organization [facility] Address [address] [place] [address] Care Team Providers Care Product Development Carpenter Name Role Phone Grabiel Devi MD Primary Care Provider +1- [phone] Encounter Details Date Type Department Care Team (Latest Contact Info) Description 08/13/[address] [facility] [address] Layla Gauthier, PhD NO ADDRESS ON FILE CONVERSION DISORDER (Primary Dx) Social History Tobacco Use Types Packs/Day Years Used Date Smoking Tobacco: Never Assessed Comments Unknown Sex and Gender Information Value Date Recorded Sex Assigned at Not on file Legal Sex Female 6:12 AM MEDIATOR Gender Identity Not on file Sexual Orientation Not on file documented as of this encounter Plan of Treatment Not on file documented as of this encounter Visit Diagnoses Diagnosis Conversion disorder- Primary documented in this encounter Additional Health Concerns Infection Onset Date Last Indicated Resolved Time 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
--- OUTSIDE RECORDS SUMMARY | 2025-04-18 20:01 | XMS_ITS | Encounter Summary ---
Author Organization [facility] Address [address] [place] [address] Care Team Providers Care Relief Operator Name Role Phone Grabiel Devi MD Primary Care Provider +1- [phone] Encounter Details Date Type Department Care Team (Latest Contact Info) Description 07/06/2003 Outpatient Historical [facility] [place] [address] [place] [address] Magen Diaz MD NO ADDRESS ON FILE UNSOCIAL AGGRESS-UNSPEC (Primary Dx) Social History Tobacco Use Types Packs/Day Years Used Date Smoking Tobacco: Never Assessed Comments Unknown Sex and Gender Information Value Date Recorded Sex Assigned at Not on file Legal Sex Female 6:12 AM CRIMINALIST Gender Identity Not on file Sexual Orientation Not on file documented as of this encounter Plan of Treatment Not on file documented as of this encounter Visit Diagnoses Diagnosis Undersocialized conduct disorder, aggressive type, unspecified- Primary documented in this encounter Additional Health Concerns Infection Onset Date Last Indicated Resolved Time 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
--- OUTSIDE RECORDS SUMMARY | 2025-04-18 20:01 | XMS_ITS | Encounter Summary ---
Author Organization [facility] Address [address] [place] [address] Care Team Providers Care Hand Candy Dipper Name Role Phone Grabiel Devi MD Primary Care Provider +1- [phone] Encounter Details Date Type Department Care Team (Latest Contact Info) Description 08/02/2003 Outpatient [facility] [address] Layla Gauthier, PhD NO ADDRESS ON FILE CONVERSION DISORDER (Primary Dx) Social History Tobacco Use Types Packs/Day Years Used Date Smoking Tobacco: Never Assessed Comments Unknown Sex and Gender Information Value Date Recorded Sex Assigned at Not on file Legal Sex Female 6:12 AM REGISTERED PHARMACIST Gender Identity Not on file Sexual Orientation Not on file documented as of this encounter Plan of Treatment Not on file documented as of this encounter Visit Diagnoses Diagnosis Conversion disorder- Primary documented in this encounter Additional Health Concerns Infection Onset Date Last Indicated Resolved Time 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
--- OUTSIDE RECORDS SUMMARY | 2025-04-18 20:01 | XMS_ITS | Encounter Summary ---
Author Organization [facility] Address [address] [place] [address] Care Team Providers Care Real Estate Internship Name Role Phone Grabiel Devi MD Primary Care Provider +1- [phone] Encounter Details Date Type Department Care Team (Late st Contact Info) Description 06/09/2003 Emergency [facility] Emergency Department [address] [place] [address] Ed, Physician NO ADDRESS ON FILE Ton Hoang MD NO ADDRESS ON FILE CONVULSIONS, OTHER (CMS/HCC) (Primary Dx) Social History Tobacco Use Types Packs/Day Years Used Date Smoking Tobacco: Never Assessed Comments Unknown Sex and Gender Information Value Date Recorded Sex Assigned at Not on file Legal Sex Female 6:12 AM REPAIRER CONTROLLER TESTER Gender Identity Not on file Sexual Orientation Not on file documented as of this encounter Plan of Treatment Not on file documented as of this encounter Visit Diagnoses Diagnosis Other convulsions- Primary documented in this encounter Additional Health Concerns Infection Onset Date Last Indicated Resolved Time 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
--- OUTSIDE RECORDS SUMMARY | 2025-04-18 20:01 | XMS_ITS | Encounter Summary ---
Author Organization [facility] Address [address] [place] [address] Care Team Providers Care Tube Making Machine Operator Name Role Phone Grabiel Devi MD Primary Care Provider +1- [phone] Encounter Details Date Type Department Care Team (Latest Contact Info) Description 07/16/2003 Outpatient [facility] [address] Layla Gauthier, PhD NO ADDRESS ON FILE CONVERSION DISORDER (Primary Dx) Social History Tobacco Use Types Packs/Day Years Used Date Smoking Tobacco: Never Assessed Comments Unknown Sex and Gender Information Value Date Recorded Sex Assigned at Not on file Legal Sex Female 6:12 AM STATEMENT CLERKS SUPERVISOR Gender Identity Not on file Sexual Orientation Not on file documented as of this encounter Plan of Treatment Not on file documented as of this encounter Visit Diagnoses Diagnosis Conversion disorder- Primary documented in this encounter Additional Health Concerns Infection Onset Date Last Indicated Resolved Time 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
--- OUTSIDE RECORDS SUMMARY | 2025-04-18 20:01 | XMS_ITS | Encounter Summary ---
Author Organization [facility] Address [address] [place] [address] Care Team Providers Care Navigation Teacher Name Role Phone Grabiel Devi MD Primary Care Provider +1- [phone] Encounter Details Date Type Department Care Team (Latest Contact Info) Description 07/09/2003 Outpatient Historical [facility] Imaging Services-[place] Alfie Hood [address] [place] [address] Magen Diaz MD NO ADDRESS ON FILE CONVULSIONS, OTHER (CMS/HCC) (Primary Dx) Social History Tobacco Use Types Packs/Day Years Used Date Smoking Tobacco: Never Assessed Comments Unknown Sex and Gender Information Value Date Recorded Sex Assigned at Not on file Legal Sex Female 6:12 AM ACTIMIZE ARCHITECT Gender Identity Not on file Sexual Orientation Not on file documented as of this encounter Plan of Treatment Not on file documented as of this encounter Visit Diagnoses Diagnosis Other convulsions- Primary documented in this encounter Additional Health Concerns Infection Onset Date Last Indicated Resolved Time 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
--- OUTSIDE RECORDS SUMMARY | 2025-04-18 20:01 | XMS_ITS | Encounter Summary ---
Author Organization [facility] Address [address] [place] [address] Care Team Providers Care Test Tube Maker Name Role Phone Grabiel Devi MD Primary Care Provider [phone]- [phone] Encounter Details Date Type Department Care Team (Latest Contact Info) Description 07/15/2002 Outpatient Historical [facility] [place] [address] [place] [address] Magen Diaz MD NO ADDRESS ON FILE ABDOMINAL PAIN UNSPEC SITE (Primary Dx) Social History Tobacco Use Types Packs/Day Years Used Date Smoking Tobacco: Never Assessed Comments Unknown Sex and Gender Information Value Date Recorded Sex Assigned at Not on file Legal Sex Female 6:12 AM PERSONNEL SPECIALIST Gender Identity Not on file Sexual Orientation Not on file documented as of this encounter Plan of Treatment Not on file documented as of this encounter Visit Diagnoses Diagnosis Abdominal pain, unspecified site- Primary documented in this encounter Additional Health Concerns Infection Onset Date Last Indicated Resolved Time 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
--- OUTSIDE RECORDS SUMMARY | 2025-04-18 20:01 | XMS_ITS | Clinical Summary ---
Author Organization [facility] Address [address] [place] [address] Care Team Providers Care Rivet Bucker Name Role Phone Grabiel Devi MD Primary Care Provider Allergies No known active allergies Medications gabapentin (NEURONTIN) 100 mg capsule Take 1 Capsule (100 mg) by mouth 3 times daily. 90 Capsule 12/15/2019 Active HYDROcodone-sangita taminophen (NORCO) 10-325 mg TabletIndicatio ns:S/P lumbar discectomy Take 1 Tablet by mouth every 4 hours as needed for Pain. Max Daily Amount: 6 Tablets 42 Tablet 12/23/2019 12:57 PM BODY MAKER 12/23/2019 Active Active Problems Problem Noted Date Diagnosed Date Preoperative general physical examination 2019 Lumbar disc herniation 12/16/2019 History of pseudoseizure 12/16/2019 Overview (12/16/2019): Last episode 2018 Severe obesity (BMI 35.0-39.9) with comorbidity 12/16/2019 [...] Day Cigarettes 0.5 15 Smokeless Tobacco: Never Tobacco Cessation:Counseling Given: No Alcohol Use Standard Drinks/Week Comments Yes 0 (1 standard drink = 0.6 oz pur e alcohol) Comments No Sex and Gender Information Value Date Recorded Sex Assigned at Not on file Legal Sex Female 6:12 AM BODY MAKER Gender Identity Not on file Sexual Orientation Not on file Occupation Industry Job Start Date Job End Date Not on file Not on file Not on file Not on file Last Filed Vital Signs Vital Sign Reading Time Taken Comments Blood Pressure 112/78 01/11/2020 9:50 AM CDT Pulse 97 12/23/2019 1:40 PM BODY MAKER Temperature 36.6 C (97.8 F) 12/23/2019 2:00 PM BODY MAKER Respiratory Rate 20 12/23/2019 1:40 PM BODY MAKER Oxygen Saturation 95% 12/23/2019 1:40 PM BODY MAKER Inhaled Oxygen Concentration - - Weight 92.1 kg (203 lb) 01/11/2020 9:50 AM CDT Height 157.5 cm (5' 2 ) 01/11/2020 9:50 AM CDT Body Mass Index 37.13 01/11/2020 9:50 AM CDT Plan of Treatment Health Maintenance Due Date Last Done Comments DTAP/TDAP/TD VACCINES (5 - Tdap) 08/25/2004 08/24/2004, 06/14/1994, 03/22/1993, Additional history exists Pre-Diabetes and Diabetes Screening 11/15/2013 11/15/2010 HPV/Cotest (21-29) 03/22/2016 03/22/2011, 07/19/2010 CERVICAL CANCER SCREENING 2019 HPV/Cotest (30-65) 2019 03/22/2011, 07/19/2010 PAP SMEAR 2019 03/22/2011, 07/19/2010 INFLUENZA VACCINE (#1) 2024 Preventative Visit- Commercial 10/21/2024 HEPATITIS B VACCINES Completed 01/21/2002, 08/27/2001, 07/23/2001 HPV VACCINES Aged Out No longer eligi ble based on patient's age to complete this topic Medical Devices Implanted Type Area Multimedia Services Coordinator Device Identifier Shelf Expiration Date Model / Serial / Lot Hemostatic Surgiflo 8ml W/Thrombin 2994 - [id number] Implanted:01/2020 by Ab Wilcox MD at [facility] (Quantity not on file) Hemostatic N/A: Spine Lumbar [employer] [id number] 09/19/2020 [id number] / / [id number] Procedures Procedure Name Priority Date/Time Associated Diagnosis Comments CERV/VAG CYTOPATH, THIN PREP IMAGR RFLX HPV Routine 03/22/2011 7:06 AM CDT GLUCOSE TOLERANCE, 1 HR Routine 11/15/2010 from Last 3 Months or Most Recently Relevant to Health Maintenance Results * CERV/VAG CYTOPATH, THIN PREP IMAGR RFLX HPV (03/22/2011 7:06 AM CDT) IH MOSAICIST CYTOLOGY REPORT REFLEX HPV [facility] Anatomic Pathology Dept [facility] [address] Patient: MARYLIN JIANG Accn No: [id number] , [id number] Collected: 03/22/2011 7:06:00 AM All cases except those with a DP prefix are performed by pathologists from [facility] at [facility]. Case type DP is performed by Dr. Jordan Kwon, [facility], [facility], [employer], [address], [place] [address] (CLIA #[id number]) (Ph. [phone]). MOSAICIST PAP - REFLEX HPV History Specimen Type: Endocervical Post- Previous Pap History: 2009 WNL Specimen Adequacy Satisfactory for interpretation. The smear shows sufficient numbers of endocervical or metaplastic cells. Diagnosis NEGATIVE FOR INTRAEPITHELIAL LESION OR MALIGNANCY. (Previously noted as Within Normal Limits). Shake Feeder/ DIVINA Pathologist: 03/31/11 Completed by: YASMANI PARNELL BSGILDARDO(ASCP) (Electronically signed by) 03/31/11 Comment Routine follow-up is suggested. Important Information About Pap Smears The Pap smear is associated with a low but well-documented and probably irreducible false negative rate of up to 10%. Additionally, the false positive rate for a diagnosis of invasive carcinoma or HSIL has been estimated to be approximately 1-10%. Therefore, any visible lesion on the cervix should be biopsied regardless of Pap smear findings. HPV Testing off the Thin Prep vial can be done as a means of further evaluating a Thin Prep Report. For information about ordering the HPV test, phone Virology at . Treatment or follow-up recommendations (if any) that are contained within this report are based upon general recommendations as contained in 2001 Consensus Guidelines For Cervical Cytological Abnormalities BALJEET: February 11, 2002, and are provided as a general guideline rather than as a specific recommendation. Final decisions about the most appropriate treatment and follow-up should be made on an individualized basis by the treating physician in consultation with his/her patient. [facility] 03/22/2011 7:06 AM CDT Grabiel Devi MD PATHOLOGY/CYTOLOGY ORDERABL ES Edited INTERFACE SYSTEM Refer to clinic/hospital department [facility] CLIA# [id number] [address] [place] [address] * GLUCOSE TOLERANCE, 1 HR (11/15/2010) Blood specimen (specimen) Grabiel Devi MD CHEMISTRY ORDERABLES Final Result Performing Organization Address City/[facility] Co de Phone Number [facility] from Last 3 Months or Most Recently Relevant to Health Maintenance Insurance BC[employer] RX [facility] [employer] Advance Directives For more information, please contact: [phone] * Full Code (Latest Code Status on File) Date Activated Date Inactivated Comments 12/23/2019 9:34 AM 12/23/2019 12:28 PM Care Teams Rivet Bucker Relationship Specialty Start Date End Date Grabiel Devi MD PCP - General Family Practice 11/07/17
--- OUTSIDE RECORDS SUMMARY | 2025-04-18 20:01 | XMS_ITS | Encounter Summary ---
Author Organization [facility] Address [address] [place] [address] Care Team Providers Care Business Department Chair Name Role Phone Grabiel Devi MD Primary Care Provider Encounter Details Date Type Department Care Team (Latest Contact Info) Description 04/26/2000 Outpatient Historical [facility] [address] [place] [address] Doris Henoa MD NO ADDRESS ON FILE Vaginitis and vulvovaginitis, unspecified (Primary Dx) Social History Tobacco Use Types Packs/Day Years Used Date Smoking Tobacco: Never Assessed Comments Unknown Sex and Gender Information Value Date Recorded Sex Assigned at Not on file 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 Gender Identity Not on file Sexual Orientation Not on file documented as of this encounter Plan of Treatment Not on file documented as of this encounter Visit Diagnoses Diagnosis Vaginitis and vulvovaginitis, unspecified- Primary documented in this encounter Additional Health Concerns Infection Onset Date Last Indicated Resolved Time 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
--- OUTSIDE RECORDS SUMMARY | 2025-04-18 20:01 | XMS_ITS | Encounter Summary ---
Author Organization [facility] Address [address] [place] [address] Care Team Providers Care Batting Machine Operator Insulation Name Role Phone Grabiel Devi MD Primary Care Provider [phone]- [phone] Encounter Details Date Type Department Care Team (Latest Contact Info) Description 07/13/2002 Outpatient Historical [facility] [address] [place] [address] Magen Diaz MD NO ADDRESS ON FILE ABDOMINAL PAIN UNSPEC SITE (Primary Dx) Social History Tobacco Use Types Packs/Day Years Used Date Smoking Tobacco: Never Assessed Comments Unknown Sex and Gender Information Value Date Recorded Sex Assigned at Not on file 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 Gender Identity Not on file Sexual Orientation Not on file documented as of this encounter Plan of Treatment Not on file documented as of this encounter Visit Diagnoses Diagnosis Abdominal pain, unspecified site- Primary documented in this encounter Additional Health Concerns Infection Onset Date Last Indicated Resolved Time 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
--- OUTSIDE RECORDS SUMMARY | 2025-04-18 20:01 | XMS_ITS | Encounter Summary ---
Author Organization [facility] Address [address] [place] [address] Care Team Providers Care Prop Sawyer Name Role Phone Grabiel Devi MD Primary Care Provider [phone]- [phone] Encounter Details Date Type Department Care Team (Latest Contact Info) Description 07/23/2003 Outpatient [facility] [address] [address] Layla Gauthier, PhD NO ADDRESS ON FILE CONVERSION DISORDER (Primary Dx) Social History Tobacco Use Types Packs/Day Years Used Date Smoking Tobacco: Never Assessed Comments Unknown Sex and Gender Information Value Date Recorded Sex Assigned at Not on file 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 Gender Identity Not on file Sexual Orientation Not on file documented as of this encounter Plan of Treatment Not on file documented as of this encounter Visit Diagnoses Diagnosis Conversion disorder- Primary documented in this encounter Additional Health Concerns Infection Onset Date Last Indicated Resolved Time 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
[2025-04-18 20:08] VITALS: PULSE 93; RESP 18; TEMP 36.7; O2SAT 99; BMI 45.6
[2025-04-18] MEDS: cyclobenzaprine 10 mg Tablet PO (20:41)
[2025-04-18] MEDS: dexamethasone 10 mg/mL INJ IM (20:41)
--- NOTE | 2025-04-18 21:12 | ED_ITS ---
HPI - Back Pain/Injury General: Chief Complaint: Back Pain/Injury Stated Complaint: lower back pain Time Seen by Provider: 04/18/25 20:15 History of Present Illness: Chief complaint is low back pain. The patient states she has history of some low back pain. She had surgery about 5 years ago for low back pain with a herniated disc. 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 She states the next day she felt sore and had increased discomfort and pressure across her low back at the SI joint level. She states that this morning however she woke up and she states she has severe pain and it radiates down into the right buttock and in certain positions she will get some numbness and tingling in her right leg. No leg weakness. No loss of bowel or bladder control. No dysuria. No chest pain shortness of breath cough fever headache vomiting diarrhea. No fall or trauma. No IV drug use. No immunocompromise. No recent hospitalization or IV access. Denies anticoagulation. States she is currently not on any medications. She states no possible . She just finished normal menstrual cycle. Related Data Previous Rx's ?Medication ?Instructions ?Recorded cyclobenzaprine 10 mg tablet 10 mg PO Q8H PRN muscle s pasm #20 04/18/25 tabs hydrocodone 5 mg-acetaminophen 325 1 tab PO Q6H PRN pa in #14 tabs 04/18/25 mg tablet Allergies Allergy/AdvReac Type Severity Reaction Status Date / Time No Known Allergies Allergy Verified 05/23/23 18:48 Physical Exam Narrative: EXAM NARRATIVE: Patient appears anxious and in pain. She is standing at the side of the bed leaning over and using her arms to support herself. She is able to ambulate and climb in the bed. No signs of trauma to her head trunk or extremities. She moves her neck freely. Normal conjunctiva. Pupils reactive to light. Moist mucous membranes. Speech is clear. She has intact motor and sensation in her arms and legs proximally and distally including in her thighs. No leg edema. Abdomen soft nontender with no guarding or rebound or palpable organomegaly. No CVA tenderness. No focal vertebral tenderness on her back. Heart regular rhythm with no rubs or murmurs. Lung sounds are clear. No increased work of breathing. Course Vital Signs: Vital signs: Vital Signs Temperature 98.0 F 04/18/25 20:08 Pulse Rate 93 04/18/25 20:08 Respiratory Rate 18 04/18/25 20:08 Pulse Oximetry 99 04/18/25 20:08 Oxygen Delivery Me thod Room Air 04/18/25 20:08 MDM - Back Pain/Injury Medical Decision Making Patient presents complaining of low back pain. The pain is across the SI joint area bilaterally worse on the right radiates into the right buttock and down the right leg. She states she gets some numbness and tingling in certain positions. She has intact sensation and motor proximally and distally here. She can dorsiflex and plantarflex at the hallux and ankle bilaterally. She denies loss of bowel or bladder control and has intact sensation in her inner thighs and outer thighs. She has no focal vertebral tenderness and she denies risk factors for epidural hematoma or epidural abscess or discitis or osteomyelitis. Denies trauma to suggest fracture. Denies any known cancer. I advised patient however broad differential including disc herniation as well as other etiologies above which are not suggestive by exam or history. Advised potential for emergent process to develop requiring emergent neurosurgical intervention. I discussed doing an MRI. She feels comfortable with continued follow-up outpatient and outpatient MRI if indicated. I discussed treatment options and she states that she would just like a muscle relaxant here and then a prescription for hydrocodone that she can take if she needs to. Will send her home with 2 hydrocodone and give her Flexeril 10 mg p.o. here and prescribed Flexeril and hydrocodone. Will give her a shot of Decadron 10 mg IM here after informed discussion with patient regarding risk and benefit. Advised use of NSAIDs and advised dangers of opiate medication including addiction among others. Advised alternative treatment options. Advised on limits of ED evaluation. Patient's pain clearly exacerbated by certain movements or such as trying to lay down in the bed she cannot tolerate. Not suggestive of renal colic or pyelonephritis or AAA or dissection. Advised patient however limits of ED evaluation and prompt return instructions and outpatient follow-up and signs of neurologic compromise to immediately return for. Patient agrees with plan after informed discussion. Will discharge home. She declines testing and states no possibility of after informed discussion. Will provide paper prescription for opiate is not transmitting electronically at this time due to technical reasons No radiology studies performed this visit Discharge Plan Discharge Patient Disposition: Home Clinical Impression: Acute bilateral low back pain with right-sided sciatica Condition: Stable Prescriptions: New hydrocodone-acetaminophen 5-325 mg tablet 1 tab PO Q6H PRN (Reason: pain) Qty: 14 0RF cyclobenzaprine 10 mg tablet 10 mg PO Q8H PRN (Reason: muscle spasm) Qty: 20 0RF Discharge Orders: Discharge ED (Routine); Ordered 04/18/25 Ordered By: Og Almonte Patient Instructions: Opioid Safety, Pain Management, Patient Portal & Jami Instructions Activity Restrictions/Additional Instructions: Follow-up with your doctor within the next week for further evaluation and care. Return immediately if you develop loss of bowel or bladder control, weakness in your leg, fever, worsening pain, abdominal pain, vomiting, any worse or concerns. No lifting. No work for 5 days due to medical reason Print Language: Sammarinese Coding Level of Care Code ED Electrocardiograph Technician for Ed Grullon
[2025-04-18 21:47] VITALS: BP 148/76; PULSE 78; RESP 16; O2SAT 98
== END 2025-04-18 21:48 | disposition home or self-care (01) ==
PROVIDERS: Emergency Provider Emergency Medicine
DX: M54.50 Low back pain, unspecified (principal); M54.31 Sciatica, right side
CPT/HCPCS: 96372; 99284; J1100; J9999